=== PATIENT | female | born 1975 | race Two or more races ===

== ENCOUNTER 2023-05-29 05:33 | Day surgery (SDC) | payer OTHER ==
[2023-05-23 08:45] LABS: PH,URINE 7.5 (5.0-8.0); URINE APPEARANCE Turbid; URINE BILIRRUBIN Negative (NEGATIVE); URINE BLOOD Negative; URINE COLOR Yellow; URINE GLUCOSE Negative (NEGATIVE); URINE LEUKOCYTE Negative; URINE NITRATE Negative; URINE PROTEIN Negative (NEGATIVE)
[2023-05-23 08:46] LABS: URINE BACTERIA 1112.5 uL (0.0-1933); URINE EPITHELIAL CELLS 10.4 uL (0.0-38.8)
[2023-05-23 08:54] LABS: HEMATOCRIT 33.3 % (36.0-45.00); HEMOGLOBIN 10.4 g/dL (12.0-15.00); MEAN CORPUSCULAR HEMOGLOBIN 21.8 pg (27.00-32.0); MEAN CORPUSCULAR HGB CONC 31.3 g/dl (32.0-36.0); PLATELET COUNT 298 K/uL (150-450); RED BLOOD COUNT 4.78 M/uL (4.00-6.00); RED CELL DISTRIBUTION WIDTH 17.3 % (11.5-14.5)
[2023-05-23 08:56] LABS: MEAN CELL VOLUME 69.6 fL (80.00-100.00)
[2023-05-23 09:07] LABS: PARTIAL THROMBOPLASTIN TIME 26.5 SECONDS (22.0-34.0); PROTHROMBIN TIME 10.5 SECONDS (9.0-11.5)
[2023-05-23 09:12] LABS: ALBUMIN 3.5 gm/dL (3.4-5.0); BILIRUBIN TOTAL 0.44 mg/dL (0.3-1.2); CREATININE SERUM 0.58 mg/dL (0.55-1.02); GFR 111.43; GLOBULINA 3.8 G/DL (2.4-3.5); POTASSIUM 4.3 mEq/L (3.5-5.1); TOTAL PROTEIN 7.3 gm/dL (6.4-8.2)
[~2023-05-29 05:33] MED LIST: TOPROL XL50 M1 PO
[2023-05-29] MEDS ORDERED: CEFAZOLIN SODIUM 1,000 MG VIAL ONE (07:09)
[2023-05-29] MEDS ORDERED: CEFAZOLIN SODIUM 1,000 MG VIAL IV ONE (07:45)
== END 2023-05-29 10:55 | disposition home or self-care (01) ==
LOC: CIR.AMB 05:33
PROVIDERS: ATTEND Surgery
DX: K43.6 Other and unspecified ventral hernia with obstruction, without gangrene (principal)
CPT/HCPCS: 49614; C1781